=== PATIENT | male | born 1950 | race Caucasian/White ===

== ENCOUNTER 2016-12-18 14:00 | Inpatient (IN) | payer MEDICARE, OTHER ==
[~2016-12-18] VITALS: Ht 180.3 cm; Wt 91.3 kg
--- NOTE | ~2016-12-18 | OR ---
PATIENT'S NAME: [facility] AGE: 66 Y [address] ROOM: [address] [address] LOCATION: [facility] ADMIT DATE: 12/23/2016 OR/Procedure Report DISCHARGE DATE: FAMILY PHYSICIAN: JACE JARAMILLO MD ATTENDING PHYSICIAN: LUISITO KELLER SURGEON: Luisito Keller MD RIVER GUIDE: 1. NADEEM Estes. 2. Mick Rubio CST/TOW BAR DRIVER. DATE OF PROCEDURE: 12/23/2016 PRE-OP DIAGNOSIS: Primary osteoarthritis, right hip. POST-OP DIAGNOSIS: Primary osteoarthritis, right hip. OPERATION: Right total hip arthroplasty. ANESTHESIA: Spinal anesthesia plus subcutaneous and periarticular local anesthesia (ropivacaine with epinephrine and Toradol). ESTIMATED BLOOD LOSS: Approximately 225 mL. DRAIN: None. SPECIMEN: None. COMPLICATIONS: None. IMPLANTS: 1. Irina Trident Tritanium size 56 mm hemispherical uncemented acetabular shell with 1 dome hole cover and no screws. 2. Irina X3 neutral acetabular polyethylene liner with 36 mm inner diameter. 3. DePuy Graves size 7 standard offset hydroxyapatite coated uncemented femoral component. 4. 36 mm diameter metallic femoral head with +1.5 mm neck length. INDICATION FOR SURGERY: The patient is a 66-year-old who presents with advanced right hip primary osteoarthritis and associated severely compromised activities of daily living. The patient has decided to proceed with hip replacement after having been thoroughly counseled regarding the associated risks, benefits, and limitations. We have specifically reviewed the risks and implications of infection, deep venous thrombosis, pulmonary embolism, mortality, neurovascular complications, blood transfusion (and associated potential for disease transmission or transfusion reaction), stiffness, instability, leg length discrepancy, mechanical deterioration of the [facility] AGE: 66 Y [address] ROOM: [address] [address] LOCATION: [facility] ADMIT DATE: 12/23/2016 OR/Procedure Report DISCHARGE DATE: FAMILY PHYSICIAN: JACE JARAMILLO MD ATTENDING PHYSICIAN: LUISITO KELLER components (due to wear and to loosening), and the potential need for revision. DESCRIPTION OF PROCEDURE: The patient was positioned in a lateral decubitus position with the right side up after administration of anesthesia and prophylactic antibiotics. An axillary roll was placed and the non-operative leg was well padded. The pelvis was locked perpendicularly to the floor on a pegboard. The right hip and entire operative extremity were prepped and draped with vigilant sterile technique. The patient's name as well as the intended operative side and procedure were confirmed with a verbal time-out involving myself, the circulating nurse, the scrub nurse, and the anesthesiologist. The right hip was approached through a standard posterolateral incision. The fascia alfreda and the gluteus nicole fascia were sharply divided in line with the overlying skin incision. The sciatic nerve was identified and was vigilantly protected throughout the entire case. The short external rotators and posterior capsule were divided from their respective femoral insertions and tagged with four #1 Ethibond sutures for later repair. The hip was posteriorly dislocated with combined flexion, adduction, and internal rotation. The femoral neck osteotomy was performed with an oscillating saw. Inspection of the femoral head demonstrated decreased femoral head-neck offset. There was full-thickness loss of articular cartilage involving over 50% of the femoral head. There was no femoral head collapse. There was a large osteophyte at the periphery of the femoral head. Circumferential acetabular exposure was obtained. Examination of acetabulum demonstrated a moderate effusion. There was no dysplasia. There were moderate-sized osteophytes anteriorly, medially, posteriorly, and inferiorly. There were no loose bodies. There was full-thickness loss of articular cartilage involving approximately 50% of the acetabular dome. There was extensive inner perimeter degenerative tearing of the acetabular labrum. Remnants of the acetabular labrum were sharply thoroughly excised. The acetabulum was sequentially progressively reamed up to 55 mm with hemispherical power reamers. The final acetabular shell was impacted into position in 20 degrees of anteversion and 45 degrees of inclination. An excellent press-fit was obtained. No supplemental dome screw fixation was necessary. A neutral trial liner was inserted. Attention was next focused upon femoral preparation. The femoral canal initiator was utilized. The femoral canal was reamed by hand to a size 5 and subsequently up to a size 7 with power using tapered conical reamers. The size 7 reamer tightly engaged to the endosteal cortex of the proximal femur. PATIENT'S NAME: [facility] AGE: 66 Y [address] [facility] [place], [place] [address] LOCATION: [facility] ADMIT DATE: 12/23/2016 OR/Procedure Report DISCHARGE DATE: FAMILY PHYSICIAN: JACE JARAMILLO MD ATTENDING PHYSICIAN: LUISITO KELLER The femoral canal was subsequently sequentially progressively broached up to a size 7. The size 7 broach obtained excellent axial and rotational stability. Trial reductions with the above specified construct yielded acceptable stability and acceptable reproduction of leg length and offset. All trial components were removed. The final acetabular liner was inserted with excellent circumferential visualization of its locking mechanism to assure adequate deployment. The final femoral component was impacted into position. The femoral component achieved excellent axial and rotational stability. The trunnion of the femoral component was vigilantly protected prior to placement of the femoral head. The trunnion of the femoral component was thoroughly cleaned and dried prior to placement of the femoral head. The incision was thoroughly irrigated with bacteriostatic pulsatile saline lavage multiple times throughout the case. The entire joint space was thoroughly inspected and thoroughly irrigated to assure that there was no residual debris of any sort. A final reduction was then performed. After final reduction, the hip could be firmly externally rotated in full extension and zero degrees of abduction without anterior subluxation. In neutral rotation and zero degrees of abduction, the hip could be firmly flexed to 120 degrees without instability. At 90 degrees of flexion and zero degrees abduction, the hip could be internally rotated to 70 degrees before there was any hint of posterior subluxation. The posterior capsule and short external rotators were repaired through two drill holes in the posterior aspect of the greater trochanter. The fascia alfreda and gluteus nicole fascia were closed with multiple simple and [id number] interrupted # 1 Ethibond and #1 Vicryl sutures. Subcutaneous tissues were thoroughly re-irrigated with bacteriostatic pulsatile saline lavage. Subcutaneous tissues were re-approximated with simple buried interrupted #0 Vicryl sutures. The skin was closed with superficial buried interrupted 2-0 Vicryl sutures followed by a running subcuticular 3-0 Monocryl suture, followed by Octylseal, followed by Steri- Strips with benzoin, followed by an occlusive Mepilex dressing. There were no intra-operative complications. It should be noted that the physician's bankruptcy assistant played an active, integral role throughout this entire operation. By providing expert retraction, they greatly facilitated and expedited safe and effective exposure of the proximal femur and acetabulum for preparation and implantation of the components. They were also actively involved in the patient's positioning, prepping and PATIENT'S NAME: [facility] AGE: 66 Y [address] ROOM: [place] [address] LOCATION: [facility] ADMIT DATE: 12/23/2016 OR/Procedure Report DISCHARGE DATE: FAMILY PHYSICIAN: JACE JARAMILLO MD ATTENDING PHYSICIAN: LUISITO KELLER, as well as wound closure. MD MIKAYLA GARCIA/harley /[id number] d: 12/24/16 0028 t: 12/28/16 1150, OPERATIVE SUMMARY
--- NOTE | ~2016-12-18 | DS ---
PATIENT'S NAME: NICOLE ROMAN [facility] AGE: 66 Y [address] ROOM: [place] [id number] LOCATION: [facility] ADMIT DATE: 12/23/2016 Discharge Summary DISCHARGE DATE: 12/25/2016 FAMILY PHYSICIAN: Franklin Humphries MD ATTENDING PHYSICIAN: Krystian Emerson PRIMARY DIAGNOSIS: Osteoarthritis, right hip. SECONDARY DIAGNOSES: 1. Hypertension. 2. Benign prostate hypertrophy. PROCEDURE PERFORMED: Right total hip arthroplasty. HISTORY: The patient is a 66-year-old male, who presents with advanced right hip degenerative joint disease and associated severely compromised activities of daily living. The patient has decided to proceed with total right hip arthroplasty after having been thoroughly counseled regarding the risks, benefits, limitations, and alternatives. Please refer to the outpatient clinic notes and admission history and physical for this patient. HOSPITAL COURSE: The patient underwent a total right hip arthroplasty on 12/23/2016 without complications. Spinal anesthesia plus subcutaneous and periarticular local anesthesia was utilized. The patient received 24 hours of perioperative prophylactic antibiotics and remained hemodynamically stable, neurovascularly intact throughout the entire hospital course. The postoperative prophylactic deep venous thrombosis prophylaxis consisted of Xarelto, early mobilization and pneumatic compression devices. Daily physical therapy for gait training, transfer training, and reinforcement of hip dislocation precautions were received. The patient progressed well in physical therapy. On the date of discharge, 12/25/2016, the incision at the hip was healing well and showed no signs of infection. DISPOSITION: Home. DISCHARGE ACTIVITY: The patient is to bear weight as tolerated with strict hip dislocation precautions as instructed. There are to be no dressing changes. Dr. Emerson is to be notified immediately if there is any increased pain, fevers, chills, erythema, or drainage. DISCHARGE MEDICATIONS: 1. Xarelto 10 mg 1 tablet p.o. daily for 12 days for postoperative DVT prophylaxis. 2. Oxycodone 5 mg 1 to 2 tablets p.o. every 4 hours p.r.n. for pain. She was then instructed to continue all her other preadmission medications as instructed by her internal medicine doctor. PATIENT'S NAME: NICOLE ROMAN [facility] AGE: 66 Y [address] ROOM: [address] [address] LOCATION: [facility] ADMIT DATE: 12/23/2016 Discharge Summary DISCHARGE DATE: 12/25/2016 FAMILY PHYSICIAN: Franklin Humphries MD ATTENDING PHYSICIAN: Krystian Emerson FOLLOWUP: Followup appointment is to be with Dr. Emerson's office on 12/31/2016 for his initial postoperative evaluation. EVARISTO DOUGLAS PA-C FOR MD REBECCA GARCIA/harley /[id number] d: 01/01/17 0144 t: 01/01/17 09, DISCHARGE SUMMARY
[2016-12-18] MEDS ORDERED: MOBIC7.5 MG PO (15:23)
[2016-12-18] MEDS ORDERED: VYTORIN 10-801 EACH PO (15:25)
[2016-12-18] MEDS ORDERED: CIALIS5 MG PO (15:25)
[2016-12-18] MEDS ORDERED: VASOTEC5 MG PO (15:25)
[2016-12-18] MEDS ORDERED: ANASTROZOLE1 MG PO (15:26)
[2016-12-18] MEDS ORDERED: TESTOSTERO100 MG/1 M IM (15:27)
[2016-12-18] MEDS ORDERED: GINKGO BILOBA120 MG PO (15:28)
[2016-12-18] MEDS ORDERED: ASPIRIN EC81 MG PO (15:28)
[2016-12-18] MEDS ORDERED: B COMPLEX1 EACH PO (15:29)
[2016-12-18] MEDS ORDERED: SAW PALMETTO C1 EACH PO (15:30)
[2016-12-18] MEDS ORDERED: ST. JOHN'S WOR300 M1 PO (15:30)
[2016-12-18] MEDS ORDERED: COQ-10100 MG PO (15:30)
[2016-12-18] MEDS ORDERED: GRAPE SEED50 MG PO (15:31)
[2016-12-18] MEDS ORDERED: OMEGA 3-6-9 11200 MG PO (15:31)
[2016-12-18] MEDS ORDERED: GREEN TEA1 EACH PO (15:32)
[2016-12-18] MEDS ORDERED: GLUCOSAMINE CH1 EAC3 PO (15:32)
[2016-12-18] MEDS ORDERED: DHEA TABLET1 EACH PO (15:32)
[2016-12-18] MEDS ORDERED: POTASSIUM GLUCO99 M1 PO (15:33)
[2016-12-18] MEDS ORDERED: FLAX SEED OIL1000 MG PO (15:34)
[2016-12-18] MEDS ORDERED: CALCIUM-MAGNES1 EAC3 PO (15:34)
[2016-12-18] MEDS ORDERED: VITAMIN E1000 UNI2 PO (15:34)
[2016-12-18] MEDS ORDERED: VITAMIN C1500 MG PO (15:34)
[2016-12-18] MEDS ORDERED: GINSENG100 MG PO (15:35)
[2016-12-18] MEDS ORDERED: NIASPAN1000 MG PO (15:35)
[2016-12-18] MEDS ORDERED: ALPHA LIPOIC A600 MG PO (15:35)
[2016-12-18] MEDS ORDERED: ACIDOPHILUS1 EAC3 PO (15:35)
[2016-12-18] MEDS ORDERED: GREEN COFFEE B PO (15:36)
[2016-12-18] MEDS ORDERED: FLOMAX0.4 MG PO (15:36)
[2016-12-18] MEDS ORDERED: VITAMIN D-32000 UNI1 PO (15:37)
[2016-12-18] MEDS ORDERED: MELATONIN10 M2 PO (15:37)
[2016-12-25] MEDS ORDERED: TYLENOL EXTRA500 MG PO (14:05)
[2016-12-25] MEDS ORDERED: COLACE100 MG PO (14:06)
[2016-12-25] MEDS ORDERED: MIRALAX17 GM PO (14:07)
[2016-12-25] MEDS ORDERED: XARELTO10 MG PO (14:08)
[2016-12-25] MEDS ORDERED: ROXICODONE 5MG (5 MG PO (14:11)
== END 2016-12-25 15:40 | disposition disaster alternative care site (69) | DRG 470 ==
LOC: G3N 12-23 12:02
PROVIDERS: ADMIT Orthopaedic Surgery
PROC: 0SR90JA Replacement of Right Hip Joint with Synthetic Substitute, Uncemented, Open Approach (ICD-10-PCS; principal; 2016-12-23)
DX: M16.11 Unilateral primary osteoarthritis, right hip (principal)
CPT/HCPCS: C1776; J0690; J1071; J1885; J2001; J2795; J7030